=== PATIENT | female | born 1940 | race African-American/Black ===

== ENCOUNTER → 2023-06-27 | Day surgery (SDC) | payer OTHER | END | disposition home or self-care (01) | LOC: JRADUS-SUR 10:18 | PROVIDERS: ATTEND Internal Medicine | PROC: 0H9T3ZX Drainage of Right Breast, Percutaneous Approach, Diagnostic (ICD-10-PCS; principal; 2023-06-27) | DX: D24.1 Benign neoplasm of right breast (principal) | CPT/HCPCS: 19083; 77065-TC; 87899; A4648 ==